=== PATIENT | male | born 1940 | race Caucasian/White ===

== ENCOUNTER → 2020-07-06 10:01 | Outpatient (REF) | payer MEDICARE, SELFPAY | LOC: ANHLAB 10:01 | PROVIDERS: Visit Provider Nurse Practitioner | DX: C44.212 Basal cell carcinoma of skin of right ear and external auricular canal (principal) | CPT/HCPCS: 88305; 88331 ==

== ENCOUNTER → 2021-02-22 14:03 | Outpatient (CLI) | payer MEDICARE, SELFPAY ==
--- NOTE | ~2021-02-22 | XR_ITS ---
XR shoulder RT min 2V DATE: 02/22/2021 14:57 INDICATION: Right shoulder joint pain TECHNIQUE: 4 views COMPARISON: None FINDINGS: There is diffuse osteopenia. No fracture or dislocation, periosteal reaction or bone destruction is detected. There is minimal calcification at the superolateral aspect of the right humeral head which may be due to mild calcific tendinitis of the rotator cuff. IMPRESSION: Osteopenia Cannot exclude mild calcific tendinitis of the rotator cuff Reviewed, dictated and finalized at location A.
--- NOTE | ~2021-02-22 | XR_ITS ---
XR cervical spine 4-5V DATE: 02/22/2021 14:57 INDICATION: Neck pain TECHNIQUE: Standing open-mouth, odontoid, AP, lateral and swimmer views COMPARISON: None FINDINGS: C1 and C2 are normally aligned and the odontoid process is intact. There is minimal anterolisthesis at C4-5 with mild degenerative disc disease. Moderately severe degenerative disc disease at C6-7. No fracture or dislocation or locked facet or prevertebral soft tissue swelling. There is degenerative change at the apophyseal and uncovertebral joints. IMPRESSION: Moderate cervical spondylosis Reviewed, dictated and finalized at location A.
== END ==
DX: M25.511 Pain in right shoulder (principal); M85.811 Other specified disorders of bone density and structure, right shoulder; M47.812 Spondylosis without myelopathy or radiculopathy, cervical region
CPT/HCPCS: 72050; 73030

== ENCOUNTER 2023-04-21 12:25 | Outpatient (CLI) | payer MEDICARE, SELFPAY ==
--- NOTE | ~2023-04-21 | US_ITS ---
EXAMINATION: US carotid duplex BI DATE: 04/21/2023 13:14 INDICATION: Stroke TECHNIQUE: Grayscale, color Doppler, and pulsed Doppler images of the cervical carotid arteries were obtained. The degree of vessel stenosis is placed in one of the following categories: normal, <50%, 5 0-69%, >=70% but less than near-occlusion, near-occlusion, or total occlusion. Note that percent sten osis relative to normal distal artery lumen diameter is indirectly measured from velocity measurement s as described by Fabien, et al. Radiology 2003; [id number]:[id number]. COMPARISON: None. FINDINGS: RIGHT: The right common carotid artery (CCA) peak systolic velocity (PSV) is 92 cm/s. The right internal car otid artery (ICA) PSV is 51 cm/s. The right ICA end-diastolic velocity (EDV) is 11 cm/s. The right IC A/CCA PSV ratio is 0.5. Grayscale and color Doppler images yield an estimate of <50% diameter reducti on from plaque in the ICA. The external carotid artery (ECA) PSV is 67 cm/s. There is antegrade flow in the right vertebral artery. LEFT: The left CCA PSV is 97 cm/s. The left ICA PSV is 101 cm/s. The left ICA EDV is 21 cm/s. The left ICA/ CCA PSV ratio is 1.0. Grayscale and color Doppler images yield an estimate of <50% diameter reduction from plaque in the ICA. The ECA PSV is 76 cm/s. There is antegrade flow in the left vertebral artery . IMPRESSION: 1. <50% stenosis in the right internal carotid artery. 2. <50% stenosis in the left internal carotid artery. 3. Cardiac arrhythmia is present. Correlate with EKG. Reviewed, dictated and finalized at location B.
== END 2023-04-21 12:26 | disposition home or self-care (01) ==
PROVIDERS: PCP Family Medicine; Visit Provider Internal Medicine
DX: I63.9 Cerebral infarction, unspecified (principal); I65.23 Occlusion and stenosis of bilateral carotid arteries; I49.9 Cardiac arrhythmia, unspecified
CPT/HCPCS: 93880